=== PATIENT | female | born 1990 | race Caucasian/White ===

== ENCOUNTER 2019-02-10 09:56 | Inpatient (IN) | payer BC ==
[2019-02-10] MEDS ORDERED: Sodium Chloride 0.9% 10 ML SDV IV PRN (11:45)
[2019-02-10] MEDS ORDERED: Lidocaine 1% 50 ML MDV INJECT PRN (11:45)
[2019-02-10] MEDS ORDERED: Sodium Chloride 0.9% 10 ML Syringe FLUSH PRN (11:45)
[2019-02-10] MEDS ORDERED: Tranexamic Acid 1,000 MG in Sodium Chloride 0.9% 100 ML IV PRN (11:45)
[2019-02-10] MEDS ORDERED: Nalbuphine 10 MG/1 ML Vial IVPUSH PRN (11:45)
[2019-02-10] MEDS ORDERED: Water For Irrigation,Sterile 1,000 ML Container IRR PRN (11:45)
[2019-02-10] MEDS ORDERED: Butorphanol 1 MG/ML SDV IVPUSH PRN (11:45)
[2019-02-10] MEDS ORDERED: Oxytocin/0.9 % Sodium Chloride 30 UNIT/500 ML BAG IV SCH (11:45)
[2019-02-10] MEDS ORDERED: Methylergonovine 0.2 MG/1 ML Amp IM PRN (11:45)
[2019-02-10] MEDS ORDERED: Carboprost Tromethamine 250 MCG/1 ML Amp IM PRN (11:45)
[2019-02-10] MEDS ORDERED: Sodium Chloride 0.9% 2.5 ML Syringe FLUSH PRN (11:45)
[2019-02-10] MEDS ORDERED: Lactated Ringers 1,000 ML IV SCH (11:45)
[2019-02-10] MEDS ORDERED: Misoprostol 200 MCG Tab PO PRN (11:45)
[2019-02-10] MEDS ORDERED: Acetaminophen 500 MG Tab PO PRN ×2 (13:00)
[2019-02-10] MEDS ORDERED: oxyCODONE 5 MG Tab PO PRN (13:00)
[2019-02-10] MEDS ORDERED: Ibuprofen 800 MG Tab PO PRN (13:00)
[2019-02-10] MEDS ORDERED: Aluminum Hydroxide/Magnesium Hydroxide/Simethicone Susp 30 ML Cup PO PRN (13:00)
[2019-02-10] MEDS ORDERED: Bisacodyl 10 MG Supp RECTAL PRN (13:00)
[2019-02-10] MEDS ORDERED: Benzocaine/Menthol 20%-0.5% Spray 78 GM Cannister TOP PRN (13:00)
[2019-02-10] MEDS ORDERED: Docusate Sodium 100 MG Cap PO PRN (13:00)
[2019-02-10] MEDS ORDERED: Ibuprofen 400 MG Tab PO PRN (13:00)
[2019-02-10] MEDS ORDERED: Lanolin 100% Cream 7 GM Tube TOP PRN (13:00)
[2019-02-10] MEDS ORDERED: Witch Hazel Medicated Pads 40/Jar TOP PRN (13:00)
--- NOTE | 2019-02-10 13:07 | PCM.OPNOTE ---
- General Post-Op/Procedure Note Date of Surgery/Procedure: 02/10/19 Operative Procedure(s): /1st degree right labial laceration Findings: Vaible female APGARs 8, 9 weight 3540 gm. Spontaneous delivery intact placeta with 3V cord Pre Op Diagnosis: 38/1 week IUP. SROM/labor Post-Op Diagnosis: Same Anesthesia Technique: Local Primary Surgeon: Valencia Boateng EBL in mLs: 300 Complications: none known Condition: Good Free Text/Narrative:: Dictation [id number]
--- NOTE | 2019-02-10 20:45 | OR ---
SURGEON: Valencia Boateng M.D. DATE OF PROCEDURE: 02/10/2019 PREOPERATIVE DIAGNOSIS: 38-1/7 week intrauterine . POSTOPERATIVE DIAGNOSIS: 38-1/7 week intrauterine . PROCEDURE PERFORMED: Spontaneous vaginal delivery, first-degree right labial laceration repair. PRIMARY SURGEON: Valencia Boateng MD. ANESTHESIA: Local. ESTIMATED BLOOD LOSS: 300 mL. COMPLICATIONS: None. FINDINGS: Viable female. Apgars 8 at one minute, 9 at five minute. Weight of 3540 g. Spontaneous delivery, intact placenta, 3-vessel cord. DISPOSITION: nursery, mom in LDRP and stable. INDICATION: Estella is a 28-year-old G3, P1-0-1-1 at 38-1/7 weeks' gestational age, who presents on the morning of 02/10/2019 with leakage of fluid clear. She was found to be spontaneously ruptured. She is having regular contractions. On initial examination, she was found to be 5 cm. Therefore, she was admitted. Routine labs were drawn, IV hydration was initiated. She progressed quickly to complete shortly afternoon feeling the urge to push. Upon my presentation, patient was placed in modified dorsal lithotomy position, was prepped and draped in the usual aseptic manner. Began pushing efforts, was able to push adequately to +5 station followed by delivery of the infant's head, anterior, posterior shoulder, remainder of body without difficulty. The 's oropharynx and nares bulb suctioned. Cord was clamped x2 after delayed clamping was performed. Infant had been handed to her mother with attending nursing staff at her side. With delayed cord clamping, once the cord was clamped x2, it was cut. Cord arterial, cord venous, cord blood sampling was obtained. Light pressure was applied while the placenta was delivered spontaneously intact. Vigorous fundal uterine massage was applied while 30 units Pitocin was delivered in 500 mL of IV fluid. Upon inspection of cervix, vaginal sidewalls, and perineum, there was found to be a right labial laceration. This was repaired using 4-0 Vicryl on a V20 needle in continuous running fashion after prepping the region with approximately 6 mL of 1% lidocaine. Uterus remained firm. Hemostasis evident. Sponge, instrument, and needle counts were correct. The patient remained in LDRP, nursery. CAROLINA / KATYL /[id number]
[2019-02-11 07:37] VITALS: BP 119/76
--- NOTE | 2019-02-11 11:41 | PCM.PN ---
- General Info Date of Service: 02/11/19 (PPD#1 ) Functional Status: Reports: Pain Controlled, Tolerating Diet, Ambulating - Review of Systems General: Reports: No Symptoms Gastrointestinal: Reports: No Symptoms Genitourinary: Reports: No Symptoms (light vaginal bleeding.) - Patient Data Vitals - Most Recent: Last Vital Signs Temp 36.4 C 02/11/19 07:36 Pulse 79 02/11/19 07:36 Resp 17 02/11/19 07:36 BP 119/76 02/11/19 07:36 Pulse Ox 97 02/11/19 07:36 Weight - Most Recent: 93.44 kg Lab Results Last 24 Hours: Laboratory Results - last 24 hr 02/10/19 02/10/19 02/10/19 Range/Units 12:05 12:05 12:38 WBC 12.14 H (4.0-11.0) K/uL RBC 4.89 (4.30-5.90) M/uL Hgb 15.5 (12.0-16.0) g/dL Hct 45.6 (36.0-46.0) % MCV 93.3 (80.0-98.0) fL MCH 31.7 (27.0-32.0) pg MCHC 34.0 (31.0-37.0) g/dL RDW Std Deviation 42.3 (28.0-62.0) fl RDW Coeff of Lynda 13 (11.0-15.0) % Plt Count 109 L (150-400) K/uL MPV 13.00 H (7.40-12.00) fL Nucleated RBC % 0.0 /100WBC Nucleated RBCs # 0 K/uL Cord ABG pH 7.280 (7.18-7.38) Cord ABG Base Excess -6 (-10--2) Cord VBG pH 7.375 (7.25-7.45) Cord VBG Base Excess -4 (-10--2) Blood Type A NEGATIVE Antibody Screen NEGATIVE 02/11/19 Range/Units 06:05 WBC (4.0-11.0) K/uL RBC (4.30-5.90) M/uL Hgb 12.2 (12.0-16.0) g/dL Hct 35.9 L (36.0-46.0) % MCV (80.0-98.0) fL MCH (27.0-32.0) pg MCHC (31.0-37.0) g/dL RDW Std Deviation (28.0-62.0) fl RDW Coeff of Lynda (11.0-15.0) % Plt Count (150-400) K/uL MPV (7.40-12.00) fL Nucleated RBC % /100WBC Nucleated RBCs # K/uL Cord ABG pH (7.18-7.38) Cord ABG Base Excess (-10--2) Cord VBG pH (7.25-7.45) Cord VBG Base Excess (-10--2) Blood Type Antibody Screen Med Orders - Current: Current Medications Acetaminophen (Tylenol Extra Strength) 500 mg PO Q4H PRN PRN Reason: Pain Acetaminophen (Tylenol Extra Strength) 1,000 mg PO Q4H PRN PRN Reason: Pain Al Hydroxide/Mg Hydroxide (Mag-Al Plus) 30 ml PO Q8H PRN PRN Reason: Heartburn Benzocaine/Menthol (Dermoplast Pain Relief 20%-0.5% [place]) 78 gm TOP ASDIRECTED PRN PRN Reason: Perineal Comfort Measure Last Admin: 02/10/19 14:37 Dose: 1 canister Bisacodyl (Dulcolax) 10 mg RECTAL ONETIME PRN PRN Reason: Constipation Carboprost Tromethamine (Hemabate Ds) 250 mcg IM ASDIRECTED PRN PRN Reason: Post Hemorrhage Docusate Sodium (Colace) 100 mg PO BID PRN PRN Reason: Constipation Last Admin: 02/10/19 14:36 Dose: 100 mg Emollient Ointment (Lansinoh Hpa) 0 gm TOP ASDIRECTED PRN PRN Reason: Sore Nipples Lactated Ringer's (Ringers, Lactated) 1,000 mls @ 150 mls/hr IV ASDIRECTED JANEY Oxytocin/Sodium Chloride (Oxytocin 30 Unit/500 Ml-Ns) 30 unit in 500 mls @ 999 mls/hr IV TITRATE JANEY Last Infusion: 02/10/19 14:20 Dose: Infused Tranexamic Acid 1,000 mg/ (Sodium Chloride) 110 mls @ 660 mls/hr IV ONETIME PRN PRN Reason: Bleeding Ibuprofen (Motrin) 400 mg PO Q4H PRN PRN Reason: Pain Ibuprofen (Motrin) 800 mg PO Q6H PRN PRN Reason: Pain Last Admin: 02/10/19 14:36 Dose: 800 mg Lidocaine HCl (Xylocaine 1%) 50 ml INJECT ONETIME PRN PRN Reason: Laceration repair Methylergonovine Maleate (Methergine) 0.2 mg IM ASDIRECTED PRN PRN Reason: Post Hemorrhage Oxycodone HCl (Oxycodone) 5 mg PO Q2H PRN PRN Reason: Pain Sodium Chloride (Saline Flush) 10 ml FLUSH ASDIRECTED PRN PRN Reason: Keep Vein Open Sodium Chloride (Saline Flush) 2.5 ml FLUSH ASDIRECTED PRN PRN Reason: Keep Vein Open Sodium Chloride (Normal Saline) 10 ml IV ASDIRECTED PRN PRN Reason: IV Use Sterile Water (Sterile Water For Irrigation) 1,000 ml IRR ASDIRECTED PRN PRN Reason: delivery Last Admin: 02/10/19 14:34 Dose: 1,000 ml Witch Marjorie (Tucks) 1 pad TOP ASDIRECTED PRN PRN Reason: comfort care Discontinued Medications Butorphanol Tartrate (Stadol) 1 mg IVPUSH Q1H PRN PRN Reason: Pain Misoprostol (Cytotec) 200 mcg PO ONETIME PRN PRN Reason: Post Hemorrhage Nalbuphine HCl (Nubain) 10 mg IVPUSH Q1H PRN PRN Reason: Pain (severe 7-10) - Exam General: Alert, Oriented, Cooperative, No Acute Distress Neck: Supple GI/Abdominal Exam: Soft, Non-Tender (Uterus firm and non-tender.) - Problem List Review Problem List Initiated/Reviewed/Updated: Yes - Assessment Assessment:: PPD#1. Doing well. Normal PP recovery. - Plan Plan:: Discharge to home, with instructions and precautions given.
--- NOTE | 2019-02-11 11:44 | PCM.DCSUM1 ---
Discharge Summary - Hospital Course Free Text/Narrative:: PPD#1 . Doing well, wanting discharge. - Discharge Data Discharge Date: 02/11/19 Discharge Disposition: Home, Self-Care 01 Condition: Good - Patient Summary/Data Operative Procedure(s) Performed: /1st degree right labial laceration - Patient Instructions Diet: Regular Diet as Tolerated Activity: No Strenuous Activities, Rest and Relax Today (Pelvic rest for 6 weeks ) Showering/Bathing: February Shower Notify Provider of: Fever, Increased Pain, Nausea and/or Vomiting Other/Special Instructions: Pelvic rest for 6 week. Continue PNV daily. Call if temperature greater than 101 or bleeding more than a thick pad per hour - Discharge Plan Home Medications: Home Meds Mv-Mn/Iron/FA/Herbal/Digestive [ One Tablet] 1 10/31/14 [History] Vitamin B Complex [B Complex] 1 each PO 10/31/14 [History] - Discharge Summary/Plan Comment DC Time >30 min.: No - General Info Date of Service: 02/11/19 Functional Status: Reports: Pain Controlled, Tolerating Diet, Ambulating - Review of Systems General: Reports: No Symptoms Gastrointestinal: Reports: No Symptoms Genitourinary: Reports: No Symptoms - Patient Data Vitals - Most Recent: Last Vital Signs Temp 36.4 C 02/11/19 07:36 Pulse 79 02/11/19 07:36 Resp 17 02/11/19 07:36 BP 119/76 02/11/19 07:36 Pulse Ox 97 02/11/19 07:36 Weight - Most Recent: 93.44 kg Lab Results - Last 24 hrs: Laboratory Results - last 24 hr 02/10/19 02/10/19 02/10/19 Range/Units 12:05 12:05 12:38 WBC 12.14 H (4.0-11.0) K/uL RBC 4.89 (4.30-5.90) M/uL Hgb 15.5 (12.0-16.0) g/dL Hct 45.6 (36.0-46.0) % MCV 93.3 (80.0-98.0) fL MCH 31.7 (27.0-32.0) pg MCHC 34.0 (31.0-37.0) g/dL RDW Std Deviation 42.3 (28.0-62.0) fl RDW Coeff of Lynda 13 (11.0-15.0) % Plt Count 109 L (150-400) K/uL MPV 13.00 H (7.40-12.00) fL Nucleated RBC % 0.0 /100WBC Nucleated RBCs # 0 K/uL Cord ABG pH 7.280 (7.18-7.38) Cord ABG Base Excess -6 (-10--2) Cord VBG pH 7.375 (7.25-7.45) Cord VBG Base Excess -4 (-10--2) Blood Type A NEGATIVE Antibody Screen NEGATIVE 02/11/19 Range/Units 06:05 WBC (4.0-11.0) K/uL RBC (4.30-5.90) M/uL Hgb 12.2 (12.0-16.0) g/dL Hct 35.9 L (36.0-46.0) % MCV (80.0-98.0) fL MCH (27.0-32.0) pg MCHC (31.0-37.0) g/dL RDW Std Deviation (28.0-62.0) fl RDW Coeff of Lynda (11.0-15.0) % Plt Count (150-400) K/uL MPV (7.40-12.00) fL Nucleated RBC % /100WBC Nucleated RBCs # K/uL Cord ABG pH (7.18-7.38) Cord ABG Base Excess (-10--2) Cord VBG pH (7.25-7.45) Cord VBG Base Excess (-10--2) Blood Type Antibody Screen Med Orders - Current: Current Medications Acetaminophen (Tylenol Extra Strength) 500 mg PO Q4H PRN PRN Reason: Pain Acetaminophen (Tylenol Extra Strength) 1,000 mg PO Q4H PRN PRN Reason: Pain Al Hydroxide/Mg Hydroxide (Mag-Al Plus) 30 ml PO Q8H PRN PRN Reason: Heartburn Benzocaine/Menthol (Dermoplast Pain Relief 20%-0.5% [place]) 78 gm TOP ASDIRECTED PRN PRN Reason: Perineal Comfort Measure Last Admin: 02/10/19 14:37 Dose: 1 canister Bisacodyl (Dulcolax) 10 mg RECTAL ONETIME PRN PRN Reason: Constipation Carboprost Tromethamine (Hemabate Ds) 250 mcg IM ASDIRECTED PRN PRN Reason: Post Hemorrhage Docusate Sodium (Colace) 100 mg PO BID PRN PRN Reason: Constipation Last Admin: 02/10/19 14:36 Dose: 100 mg Emollient Ointment (Lansinoh Hpa) 0 gm TOP ASDIRECTED PRN PRN Reason: Sore Nipples Lactated Ringer's (Ringers, Lactated) 1,000 mls @ 150 mls/hr IV ASDIRECTED JANEY Oxytocin/Sodium Chloride (Oxytocin 30 Unit/500 Ml-Ns) 30 unit in 500 mls @ 999 mls/hr IV TITRATE JANEY Last Infusion: 02/10/19 14:20 Dose: Infused Tranexamic Acid 1,000 mg/ (Sodium Chloride) 110 mls @ 660 mls/hr IV ONETIME PRN PRN Reason: Bleeding Ibuprofen (Motrin) 400 mg PO Q4H PRN PRN Reason: Pain Ibuprofen (Motrin) 800 mg PO Q6H PRN PRN Reason: Pain Last Admin: 02/10/19 14:36 Dose: 800 mg Lidocaine HCl (Xylocaine 1%) 50 ml INJECT ONETIME PRN PRN Reason: Laceration repair Methylergonovine Maleate (Methergine) 0.2 mg IM ASDIRECTED PRN PRN Reason: Post Hemorrhage Oxycodone HCl (Oxycodone) 5 mg PO Q2H PRN PRN Reason: Pain Sodium Chloride (Saline Flush) 10 ml FLUSH ASDIRECTED PRN PRN Reason: Keep Vein Open Sodium Chloride (Saline Flush) 2.5 ml FLUSH ASDIRECTED PRN PRN Reason: Keep Vein Open Sodium Chloride (Normal Saline) 10 ml IV ASDIRECTED PRN PRN Reason: IV Use Sterile Water (Sterile Water For Irrigation) 1,000 ml IRR ASDIRECTED PRN PRN Reason: delivery Last Admin: 02/10/19 14:34 Dose: 1,000 ml Witch Marjorie (Tucks) 1 pad TOP ASDIRECTED PRN PRN Reason: comfort care Discontinued Medications Butorphanol Tartrate (Stadol) 1 mg IVPUSH Q1H PRN PRN Reason: Pain Misoprostol (Cytotec) 200 mcg PO ONETIME PRN PRN Reason: Post Hemorrhage Nalbuphine HCl (Nubain) 10 mg IVPUSH Q1H PRN PRN Reason: Pain (severe 7-10) - Exam General: Reports: Alert, Oriented, Cooperative, No Acute Distress GI/Abdominal Exam: Soft, Non-Tender
== END 2019-02-11 15:10 | disposition home or self-care (01) | DRG 560 ==
LOC: MW.OBCHECK 09:56 → MW.OB 09:57 → MW.OBCHECK 11:45 → OBSVTOIN 13:00 → MW.OB 13:53
PROVIDERS: ADMIT Obstetrics & Gynecology; ATTEND Obstetrics & Gynecology
PROC: 6A550ZT Pheresis of Cord Blood Stem Cells, Single (ICD-10-PCS; principal; 2019-02-10)
PROC: 0UQMXZZ Repair Vulva, External Approach (ICD-10-PCS; principal; 2019-02-10)
PROC: 10E0XZZ Delivery of Products of Conception, External Approach (ICD-10-PCS; principal; 2019-02-10)
DX: O70.0 First degree perineal laceration during delivery (principal); Z3A.38 38 weeks gestation of pregnancy; Z37.0 Single live birth
CPT/HCPCS: 36415; 59025; 59409; 82803; 84112; 85014; 85018; 85027; 86850; 86900; 86901; A9270-GY; J2590